=== PATIENT | male | born 1970 | race Caucasian/White ===

== ENCOUNTER 2021-07-15 19:00 | Emergency (ER) | payer BC, OTHER ==
--- NOTE | 2021-07-15 19:49 | EDM.PDOC ---
ED HPI GENERAL MEDICAL PROBLEM - General Chief Complaint: Skin Complaint Stated Complaint: LEFT INDEX FINGER INJURY Time Seen by Provider: 07/15/21 19:03 Source of Information: Reports: Patient, Significant Other (Fianc) History Limitations: Reports: No Limitations - History of Present Illness INITIAL COMMENTS - FREE TEXT/NARRATIVE: Mr. Dillon is a very pleasant 51-year-old gentleman who states that he developed itchiness, redness, warmth, and swelling to the dorsal aspect of his left 2nd MCP joint around 07/09/2021. He was seen at an urgent care in [place] on Monday night, 07/11/2021. He states that no tests were done, but that he was prescribed cephalexin 500 mg po Q12 hrs. he was then seen at the [place] ED on Monday morning, 07/13/2021. He states that a CBC, CMP, CRP, swab for the SARS-CoV-2 virus, and ultrasound of his left hand, and a CT of his left upper extremity were performed. The CBC found leukocytosis of 14.2, the CMP slight hyperglycemia of 122, the CRP significantly elevated at 50.9, the ultrasound evidence of fluid in the area of concern, and the CT a 1.5 cm pocket of fluid that may extend into the joint. The patient states that the Emergency Physician performed an incision and drainage of fluid from the dorsal aspect of the patient's 2nd MCP joint, but the patient does not believe that any pus came out. He was admitted to the hospital, where he was treated with IV Vanco + some other antibiotic whose name he does not recall. A CBC yesterday, on 07/14/2021, found his WBC count to be down to 8.4. He was discharged home today with prescriptions for clindamycin, linezolid, and oxycodone. The patient now presents the ED because he still has swelling around the 2nd MCP joint and his hand, and he is concerned that he might get bursitis or a blood- borne infection. Here in the ED, the patient's initial BP is found to be elevated at 167/85, otherwise, he is hemodynamically stable, afebrile, saturating 99% on room air. He appears to be comfortable, in no acute distress. Other than his left hand issue, the patient denies having a recent fever, chills, sore throat, ear pain, nasal or sinus congestion, cough, dyspnea, chest pain, palpitations, nausea, vomiting, constipation, diarrhea, abdominal pain, urinary symptoms, recent weight gain or weight loss, recent bloody bowel movements or black bowel movements, recent joint aches, headaches, or rashes. The patient's PCP is at the [place] [facility] in [place]. He received a single [employer] COVID vaccination on 04/16/2021. 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 Left Hand Pain Score (Numeric/FACES): 7 - Related Data Allergies Allergy/AdvReac Type Severity Reaction Status Date / Time ceftriaxone [From Rocephin] Allergy Hives Verified 07/15/21 19:19 Home Meds: Home Meds Clindamycin HCl 150 mg PO TID 07/15/21 [History] Linezolid [Zyvox] 30 ml PO BID 07/15/21 [History] oxyCODONE 5 mg PO Q6H PRN 07/15/21 [History] Past Medical History HEENT History: Reports: Impaired Vision Cardiovascular History: Reports: Hypertension (untreated) Respiratory History: Reports: Sleep Apnea (noncompliant with nightly CPAP) Musculoskeletal History: Reports: Osteoarthritis (fingers) Endocrine/Metabolic History: Reports: Obesity/BMI 30+, Other (See Below) (Prediabetes) - Past Surgical History HEENT Surgical History: Reports: Oral Surgery (dental extractions) Musculoskeletal Surgical History: Reports: Arthroscopic Knee (right x 3, left x 4) Social & Family History - Tobacco Use Tobacco Use Status *Q: Former Tobacco User Years of Tobacco use: 1 Packs/Tins Daily: 1 Month/Year Tobacco Last Used: Quit 1990 Tobacco Use Comment: Started smoking 1989 - Alcohol Use Alcohol Use History: Yes Alcohol Use Frequency: Socially - Recreational Drug Use Recreational Drug Use: No - Living Situation & Occupation Living situation: Reports: , with Significant Other (Fianc), with Family (2 teenagers) Occupation: Employed (ordnance officer) ED ROS GENERAL - Review of Systems Review Of Systems: Comprehensive ROS is negative, except as noted in HPI. ED EXAM, SKIN/RASH Exam: See Below Exam Limited By: No Limitations General Appearance: Alert, WD/WN, No Apparent Distress Extremities: Other (Mild to moderate swelling of the radial aspect of the patient's left hand, particularly around the 2nd MCP joint, but extending onto the distal radial aspect palm. Minimal erythema and calor. There is an approximately 1 cm surgical wound to the dorsal-radial aspect of the left 2nd MCP. Neurovascu) Course - Vital Signs Last Recorded V/S: Last Vital Signs Temp 36.2 C 07/15/21 19:11 Pulse 89 07/15/21 19:11 Resp 16 07/15/21 19:11 BP 167/85 H 07/15/21 19:11 Pulse Ox 99 07/15/21 19:11 - Re-Assessments/Exams Free Text/Narrative Re-Assessment/Exam: 07/15/21 19:[address] of the patient's left upper extremity obtained 07/13/2021 indicated possible extension of the fluid pocket into the 2nd MCP joint space. If that is true, then the patient may need surgical debridement. I will refer him to Dr. Lindsey for further evaluation. In the meantime, the patient should continue his currently prescribed clindamycin and linezolid. Departure - Departure Time of Disposition: 19:47 Disposition: Home, Self-Care 01 Condition: Good Clinical Impression: Infection of left hand - Discharge Information *PRESCRIPTION DRUG MONITORING PROGRAM REVIEWED*: Not Applicable *COPY OF PRESCRIPTION DRUG MONITORING REPORT IN PATIENT ESTELA: Not Applicable Referrals: PCP,None [Primary Care Provider] - Stephane Lindsey MD [Physician] - Forms: ED Department Discharge Additional Instructions: You were seen in the emergency room over concern of prolonged healing of a left hand infection. Reviewing the CT of your left upper extremity obtained 07/13/2021, there may be extension of the fluid pocket into your index knuckle joint. If that is true, then you may need to have surgical debridement. We recommend that you continue to take your clindamycin and linezolid as prescribed. Please follow-up with the Orthopedic Surgeon Dr. Stephane Lindsey at the next available appointment. If any other problems, please do not hesitate to return to the ER. Sepsis Event Note (ED) - Evaluation Sepsis Screening Result: No Definite Risk - Focused Exam Vital Signs: Vital Signs Temp Pulse Resp BP Pulse Ox 07/15/21 19:11 36.2 C 89 16 167/85 H 99
== END 2021-07-15 20:02 | disposition home or self-care (01) ==
LOC: JD.ED 19:00
DX: L08.9 Local infection of the skin and subcutaneous tissue, unspecified (principal); I10 Essential (primary) hypertension; E66.9 Obesity, unspecified; Z68.34 Body mass index [BMI] 34.0-34.9, adult; Z88.1 Allergy status to other antibiotic agents; Z87.891 Personal history of nicotine dependence
CPT/HCPCS: 99282